=== PATIENT | female | born 2000 | race African-American/Black ===

== ENCOUNTER 2019-12-23 11:27 | Emergency (ER) | payer BC, OTHER ==
[2019-12-24 12:36] LABS: SARS-CoV-2 MS2 Positive; SARS-CoV-2 N Gene Negative; SARS-CoV-2 S Gene Negative; SARS-CoV-2 by NAA Not Detected (NotDetected); SARS-CoV-2 orf1ab Negative
== END 2019-12-23 13:50 | disposition home or self-care (01) ==
LOC: ERS 11:27
DX: R51.9 Headache, unspecified (principal); R11.0 Nausea; Z20.828 Contact with and (suspected) exposure to other viral communicable diseases
CPT/HCPCS: 87635; 99284; U0003

== ENCOUNTER 2020-02-13 10:28 | Emergency (ER) | payer BC, SELFPAY ==
[2020-02-13 13:13] LABS: SARS-CoV-2 MS2 Positive; SARS-CoV-2 N Gene Negative; SARS-CoV-2 S Gene Negative; SARS-CoV-2 by NAA Not Detected (NotDetected); SARS-CoV-2 orf1ab Negative
== END 2020-02-13 11:07 | disposition home or self-care (01) ==
LOC: ERS 10:28
DX: Z20.828 Contact with and (suspected) exposure to other viral communicable diseases (principal)
CPT/HCPCS: 87635; 99283; U0003